=== PATIENT | female | born 1990 | race Caucasian/White ===

== ENCOUNTER 2017-08-22 22:26 | Emergency (ER) | payer OTHER ==
[~2017-08-22] VITALS: Ht 157.5 cm; Wt 92.9 kg
[2017-08-22 22:41] VITALS: O2SAT 97; Ht 157.5 cm; Wt 92.9 kg
--- NOTE | 2017-08-22 22:41 | EMERGENCY ROOM VISIT NOTE ---
History Report prepared by Jacqueline: Bee Guzman Under the Supervision of: Dr. Tima Devries M.D. 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 She states she was at work tonight at [employer] when she decided to go outside for a cigarette. She states that she suddenly felt explosive chest pain that was 10/10 in severity and she passed out for about 10 to 15 seconds. When she was woken up by her coworkers, she notes her chest felt cold and achy and she was dizzy. She states when she had her LOC, she remembered hitting her head, right knee, and right hand. The patient denies any SOB, her heart pounding, urinary symptoms, recent illnesses, recent long travel, or personal history of blood clots. 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 A total of 10 systems reviewed and were otherwise negative. Past Medical & Surgical Medical Problems: (1) No significant medical problems No significant medical problems Family History No pertinent family history Social History Smoking Status: Current Every Day Smoker Alcohol Use: occasionally Marital Status: single Occupation Status: employed Current/Historical Medications Scheduled Loratadine (Claritin), 10 MG PO DAILY Allergies Coded Allergies: Benzalkonium Chloride (Verified Allergy, Unknown, ear inflamed, sore throat, 08/23/17) Dexamethasone (Verified Allergy, Unknown, ear inflamed, sore throat, ) Edetic Acid (Verified Allergy, Unknown, ear inflamed, sore throat, 08/23/17 ) Tyloxapol (Verified Allergy, Unknown, ear inflamed, sore throat, 08/23/17) Physical Exam Vital Signs Date Time Temp Pulse Resp B/P (MAP) Pulse Ox O2 Delivery O2 Flow Rate FiO2 08/22/17 23:56 79 18 110/70 98 Room Air 08/22/17 22:46 81 08/22/17 22:41 97 Room Air 08/22/17 22:41 36.7 79 16 97/78 98 Room Air 08/22/17 22:41 97 Room Air 08/22/17 22:41 97 Room Air Physical Exam GENERAL: Patient is in no acute distress. HEENT: No acute trauma, normocephalic atraumatic, mucous membranes moist, no nasal congestion, no scleral icterus. NECK: No stridor, no adenopathy, no meningismus, trachea is midline. LUNGS: Clear to auscultation bilaterally, no wheeze, no rhonchi, breath sounds equal. HEART: Without murmurs gallops or rubs, regular rate and rhythm. CHEST: Nontender chest wall ABDOMEN: Soft, nontender, bowel sounds positive, no hernias, no peritonitis. EXTREMITIES: No cyanosis or edema, full range of motion of all the joints without pain or difficulty, no signs for acute trauma. NEUROLOGIC: Oriented x 3, no acute motor or sensory deficits, no focal weakness. SKIN: No rash, no jaundice, no diaphoresis. Medical Decision & Procedures ER Provider Diagnostic Interpretation: Radiology results as stated below per my review and radiologist interpretation: CHEST ONE VIEW PORTABLE CLINICAL HISTORY: 26 years-old Female presenting with CHEST PAIN. TECHNIQUE: Portable upright AP view of the chest was obtained. COMPARISON: None. FINDINGS: Cardiomediastinal silhouette normal. No focal opacity. No large effusion or pneumothorax. Osseous structures normal. Upper abdomen normal. IMPRESSION: 1. No acute cardiopulmonary disease. Electronically signed by: Samy Valladares M.D. 08/22/2017 11:16 PM Dictated Date/Time: 08/22/2017 11:[address] CHEST With Contrast No eivdence of PE. Lungs are clear. No pleural effusions. No adenopathy. Heart size is normal. Aorta is unremarkable. Radiologist: Lencho Coffey MD Study ready at 00:00 and initial results trasnmitted at 00:01 Laboratory Results 08/22/17 22:15 08/22/17 22:15 Test 08/22/17 22:15 08/22/17 22:39 08/23/17 00:37 Red Blood Count 4.47 M/uL (4.2-5.4) Mean Corpuscular Volume 89.0 fL (80-100) Mean Corpuscular Hemoglobin 31.1 pg (25-34) Mean Corpuscular Hemoglobin Concent 34.9 g/dl (32-36) RDW Standard Deviation 40.0 fL (36.4-46.3) RDW Coefficient of Variation 12.4 % (11.5-14.5) Mean Platelet Volume 10.1 fL (7.4-10.4) Prothrombin Time 9.6 SECONDS (9.0-12.0) Prothromb Time International Ratio 0.9 (0.9-1.1) Activated Partial Thromboplast Time 24.0 SECONDS (21.0-31.0) Partial Thromboplastin Ratio 0.9 Anion Gap 7.0 mmol/L (3-11) Est Creatinine Clear Calc Drug Dose 101.0 ml/min Estimated GFR () 103.6 Estimated GFR (Non- 89.4 BUN/Creatinine Ratio 13.4 (10-20) Calcium Level 8.6 mg/dl (8.5-10.1) Magnesium Level 2.1 mg/dl (1.8-2.4) Lipase 242 U/L (73-393) Thyroid Stimulating Hormone (TSH) 2.940 uIu/ml (0.300-4.500) Human Chorionic Gonadotropin, Qual NEG (NEG) Bedside D-Dimer 377 ng/mlFEU (0-450) Bedside Troponin I < 0.030 ng/ml (0-0.045) Repeat POC Troponin was normal as well Laboratory results reviewed by me. ECG Per My Interpretation Indication: chest pain Rate (beats per minute): 78 Rhythm: normal sinus Findings: no ectopy, other (nonspecific ST change, no ST elevation, no PVCs) ED Course 2227: The patient was evaluated in room C12. A complete history and physical exam was performed. I checked on the patient, she is resting comfortably. She has more pain now in the area of her posterior left back. The pain does seem reproducible with certain movements and palpation. She was updated on all her findings. Reevaluated the patient. Discussed results and discharge instructions: She verbalized understanding and agreement. The patient is ready for discharge. Medical Decision Differential diagnosis: Etiologies such as musculoskeletal pain, dysrhythmia, UT, PE, aortic dissection , pneumothorax, pneumonia, pancreatitis as well as others were entertained. There is no leukocytosis or concerning anemia. No significant electrolyte abnormality or kidney failure. Magnesium was normal. Thyroid testing was normal. Chest film did not show mediastinal widening, pneumonia or pneumothorax. There was no free air. EKG shows a normal sinus rhythm, no acute ischemia. Cardiac enzyme testing 2 is not consistent with acute cardiac injury. Chest CT does not show evidence for PE or for aortic dissection. The patient did not need anything for pain. She has been resting comfortably. She now seems to have pain more so in her left posterior back and it seems somewhat reproducible on exam. It seems the pain today was musculoskeletal. The pain was severe and sudden enough that she had a syncopal spell. She is doing well now, her symptoms have basically resolved, I do think she can be discharged with outpatient doctor follow-up. If worsening, she can return. Of note, no serious injuries noted from the syncopal spell. Medication Reconcilliation Current Medication List: was personally reviewed by me Blood Pressure Screening Patient's blood pressure: Normal blood pressure Blood pressure disposition: Did not require urgent referral Impression Primary Impression: Chest pain, precordial Additional Impression: Syncope Scribe Attestation The scribe's documentation has been prepared under my direction and personally reviewed by me in its entirety. I confirm that the note above accurately reflects all work, treatment, procedures, and medical decision making performed by me. Departure Information Dispostion Home / Self-Care Forms HOME CARE DOCUMENTATION FORM, IMPORTANT VISIT INFORMATION Patient Instructions My [facility] Additional Instructions heart and lung testing today was all ok may use tylenol for pain see maría christopher for a recheck this week return if worsening lab testing and imaging was all ok today Problem Qualifiers
[2017-08-22 22:47] LABS: HEMATOCRIT 39.8 % (37-47); HEMOGLOBIN 13.9 g/dL (12.0-16.0); MEAN CORPUSCULAR HEMOGLOBIN 31.1 pg (25-34); MEAN CORPUSCULAR HGB CONC 34.9 g/dl (32-36); MEAN PLATELET VOLUME 10.1 fL (7.4-10.4); PLATELET COUNT 239 K/uL (130-400); RED CELL DISTRIBUTION WIDTH CV 12.4 % (11.5-14.5); WHITE BLOOD COUNT 9.42 K/uL (4.8-10.8)
[2017-08-22 23:00] LABS: INR 0.9 (0.9-1.1)
[2017-08-22 23:05] LABS: CALCIUM 8.6 mg/dl (8.5-10.1); CREATININE 0.88 mg/dl (0.60-1.20); POTASSIUM 3.6 mmol/L (3.5-5.1)
--- NOTE | 2017-08-22 23:17 | DIAGNOSTIC IMAGING REPORT ---
CHEST ONE VIEW PORTABLE CLINICAL HISTORY: 26 years-old Female presenting with CHEST PAIN. TECHNIQUE: Portable upright AP view of the chest was obtained. COMPARISON: None. FINDINGS: Cardiomediastinal silhouette normal. No focal opacity. No large effusion or pneumothorax. Osseous structures normal. Upper abdomen normal. IMPRESSION: 1. No acute cardiopulmonary disease. Electronically signed by: Samy Valladares M.D. 08/22/2017 11:16 PM Dictated Date/Time: 08/22/2017 11:15 PM
[2017-08-23] MEDS ORDERED: CLR10 PO (00:16)
[2017-08-23 01:08] VITALS: BP 115/75; PULSE 75; TEMP 36.6; O2SAT 98
--- NOTE | 2017-08-23 06:41 | DIAGNOSTIC IMAGING REPORT ---
CT ANGIOGRAM OF THE CHEST CLINICAL HISTORY: Atypical chest pain and syncope COMPARISON STUDY: Chest x-ray dated 08/22/2017 TECHNIQUE: Following the IV administration of 91 mL of [id number]-[id number], CT angiogram of the thorax was performed from the thoracic inlet to the lung bases utilizing the pulmonary embolus protocol. Images are reviewed in the axial, sagittal, and coronal planes. IV contrast was administered without complication. MIP imaging was performed. A dose lowering technique was utilized adhering to the principles of ALARA. CT DOSE: 417.11 mGy.cm FINDINGS: No pathologically enlarged axillary mediastinal or hilar lymph nodes were visualized. There was no evidence of thoracic aortic dilatation. There were no pulmonary artery filling defects to indicate acute pulmonary embolism. No pleural effusions are visualized. There was no evidence of focal pulmonary consolidation. IMPRESSION: No acute intrathoracic findings. No evidence of acute pulmonary embolism. No evidence of focal pulmonary consolidation. Electronically signed by: Dawson Tay M.D. 08/23/2017 6:39 AM Dictated Date/Time: 08/23/2017 6:37 AM
== END 2017-08-23 01:08 | disposition home or self-care (01) ==
LOC: C.EDC 22:28
DX: R07.2 Precordial pain (principal); R55 Syncope and collapse; F17.210 Nicotine dependence, cigarettes, uncomplicated; Z79.899 Other long term (current) drug therapy; Z88.8 Allergy status to other drugs, medicaments and biological substances